=== PATIENT | female | born 1965 | race Caucasian/White ===

== ENCOUNTER → 2019-03-29 12:45 | Emergency (ER) | payer SELFPAY ==
[~2019-03-29 12:45] MED LIST: Lidocaine 2% EPI 1:200000 MPF* 10 ML VIAL INJ ONE; Lidocaine 2% w/ EPI 1:200,000* 20 ML VIAL INJ ONE; Lidocaine 2% w/ EPI 1:200,000* 20 ML VIAL ONE; Tetan/Diph/Pertus SYR(Tdap)* 0.5 ML SYR(BOOSTRIX) use SYR IM ONE
--- NOTE | 2019-03-29 13:28 | ED ---
Upper Extremity Pain - HPI Summary HPI Summary: The patient is a 53 y/o F presenting to [facility] with a chief complaint of sudden onset fish hook FB in the RUE starting a few hours ago. She reports that she had been fishing with her grandchildren when the line was cast and the hook ended up in the triceps of the right arm. She denies fevers, active bleeding, and noted erythema or streaking in the arm. The dull pain is currently rated 2/ 10 in severity. She is not UTD on tetanus. Hx of migraines. Light every day smoker, occasional EtOH, no substance use. - History of Current Complaint Chief Complaint: EDExtremityUpper Stated Complaint: HOOK IN ARM PER PT Time Seen by Provider: 03/29/19 13:09 Hx Obtained From: Patient Mechanism Of Injury: Penetrating Trauma - fish hook in RUE Onset/Duration: Started Hours Ago, Still Present Timing: Lasting Hours Severity Initially: Moderate Severity Currently: Moderate Pain Location: Arm - posterior RUE Character: Dull Aggravating Factor(s): Nothing Alleviating Factor(s): Nothing Associated Signs & Symptoms: Positive: Other - NEGATIVE: active bleeding at site of fish hook. Negative: Redness - or streaking, Fever - Allergies/Home Medications Allergies/Adverse Reactions: Allergies Allergy/AdvReac Type Severity Reaction Status Date / Time tetracycline Allergy Rash Verified 03/29/19 12:49 PMH/Surg Hx/FS Hx/Imm Hx Endocrine/Hematology History: Denies: Hx Diabetes Cardiovascular History: Denies: Hx Hypertension Neurological History: Reports: Hx Migraine - Surgical History Surgical History: None Surgery Procedure, Year, and Place: none Infectious Disease History: No Infectious Disease History: Denies: Traveled Outside the [place] in Last 30 Days - Family History Known Family History: Negative: Hypertension, Diabetes - Social History Alcohol Use: Occasionally Hx Substance Use: No Substance Use Type: Reports: None Hx Tobacco Use: Yes Smoking Status (MU): Light Every Day Tobacco Smoker Review of Systems Negative: Fever Positive: Other - fish hook in right triceps Positive: Other - NEGATIVE: erythematous streaking on arm, active bleeding All Other Systems Reviewed And Are Negative: Yes Physical Exam - Summary Physical Exam Summary: Appearance: Well appearing, no pain distress Skin: fish hook in right arm, warm, dry, reflects adequate perfusion Head/face: normal Eyes: EOMI, BELA ENT: normal Neck: supple, non-tender Respiratory: CTA, breath sounds present Cardiovascular: RRR, pulses symmetrical Abdomen: non-tender, soft Musculoskeletal: normal, strength/ROM intact Neuro: normal, sensory motor intact, A&Ox3 Triage Information Reviewed: Yes Vital Signs On Initial Exam: Initial Vitals Temp Pulse Resp BP Pulse Ox 98.4 F 75 18 164/85 97 03/29/19 12:48 03/29/19 12:48 03/29/19 12:48 03/29/19 12:48 03/29/19 12:48 Vital Signs Reviewed: Yes Procedures - Procedure Summary Procedure Summary: Foreign Body Removal Procedure: fish hook removed from posterior right arm under local anesthesia 2% lido with epi, small laceration was closed with dermabond, patient tolerated procedure well Diagnostics - Vital Signs Vital Signs Temp Pulse Resp BP Pulse Ox 03/29/19 12:48 98.4 F 75 18 164/85 97 - Laboratory Lab Statement: Any lab studies that have been ordered have been reviewed, and results considered in the medical decision making process. Re-Evaluation - Re-Evaluation First Eval Re-Evaluation Time: 13:40 Change: Improved Comment: I removed the fish hook from the patient's arm (see procedure note). We discussed discharge. Course/Dx - Course Course Of Treatment: The patient is a 53 y/o F presenting to [facility] with a chief complaint of fish hook in the RUE at the triceps starting a few hours ago while fishing. Denies fevers, active bleeding, and noted erythema or streaking in the arm. Upon physical exam, the patient exhibits a fish hook in the right arm. Patient is not UTD on tetanus, so she was administered Boostrix. I performed removal of the fish hok under local anesthetics of 2% lidocaine with epinephrine ; there was a small laceration closed with dermabond. She tolerated procedure well. She is diagnosed with fish hook in right upper arm. She agrees to follow up with her PCP in 3 days for wound check. She is prescribed Augmentin to prevent infection. - Diagnoses Provider Diagnoses: Fish hook injury of right upper arm Discharge - Sign-Out/Discharge Documenting (check all that apply): Patient Departure - Patient will be discharged home. Patient Received Moderate/Deep Sedation with Procedure: No - Discharge Plan Condition: Stable Disposition: HOME Prescriptions: Amoxicillin/Clavulanate TAB* [Augmentin TAB 875*] 875 mg PO BID #14 tab Patient Education Materials: Soft Tissue Foreign Body (ED) Referrals: [facility] [Outside] - 3 Days Additional Instructions: Please take medications as prescribed. Follow up with your primary care provider in 3 days for a wound check. RETURN TO THE EMERGENCY DEPARTMENT FOR ANY NEW OR WORSENING SYMPTOMS. - Billing Disposition and Condition Condition: STABLE Disposition: Home - Attestation Statements Document Initiated by Mariliaibe: Yes Documenting Scribe: Sandhya Fontaine Provider For Whom Pearl is Documenting (Include Credential): Dr. Juan Morin MD Scribe Attestation: Sandhya Veloz scribed for Dr. Juan Morin MD on 03/29/19 at 1413. Scribe Documentation Reviewed: Yes Provider Attestation: The documentation as recorded by the Sandhya bolivar accurately reflects the service I personally performed and the decisions made by me, Dr. Juan Morin MD Status of Scribe Document: Viewed
[2019-03-29 14:04] VITALS: BP 128/80
== END | disposition home or self-care (01) ==
LOC: ED 12:45
DX: S41.141A Puncture wound with foreign body of right upper arm, initial encounter (principal); W45.8XXA Other foreign body or object entering through skin, initial encounter; Y93.89 Activity, other specified; Y92.9 Unspecified place or not applicable; Z23 Encounter for immunization; Z88.1 Allergy status to other antibiotic agents; F17.200 Nicotine dependence, unspecified, uncomplicated
CPT/HCPCS: 10120; 90471; 90715; 99281